=== PATIENT | male | born 1960 | race American Indian/Alaskan Native ===

== ENCOUNTER 2016-11-25 19:54 | Emergency (ER) | payer OTHER ==
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
[2016-11-26] MEDS ORDERED: MOTRIN PO ONE (01:26)
[2016-11-26 02:37] VITALS: BP 155/94
== END 2016-11-26 02:15 | disposition home or self-care (01) ==
LOC: ED 19:54
DX: M25.561 Pain in right knee (principal); M79.1 Myalgia; M54.2 Cervicalgia; I10 Essential (primary) hypertension; E11.9 Type 2 diabetes mellitus without complications; Z91.010 Allergy to peanuts; Z91.018 Allergy to other foods; V43.52XA Car driver injured in collision with other type car in traffic accident, initial encounter; Y93.9 Activity, unspecified; Y99.9 Unspecified external cause status; Y92.410 Unspecified street and highway as the place of occurrence of the external cause
CPT/HCPCS: 99282